=== PATIENT | male | born 1945 | race Hispanic/Latino ===

== ENCOUNTER 2021-11-13 12:56 | Emergency (ER) | payer MEDICARE ==
[2021-11-13] MEDS ORDERED: Aspirin Chewable 81 MG TAB ONE (13:27)
[2021-11-13] MEDS ORDERED: Morphine 4 MG/ML VIAL ONE ×2 (13:34→16:35)
[2021-11-13] MEDS ORDERED: methylPREDNISolone Sod Succ/PF 125 MG/2 ML VIAL ONE (13:34)
[2021-11-13] MEDS ORDERED: Ondansetron PF 4 MG/2 ML Vial ONE (13:34)
[2021-11-13 13:36] LABS: #Basophils 0.1 thou/uL (0.0-0.2); #Eosinphils 0.4 thou/uL (0.0-0.7); #Lymphocytes 2.6 thou/uL (1.20-3.40); #Monocytes 0.4 thou/uL (0.11-0.59); #Neutrophils 4.7 thou/uL (1.40-6.50); %Basophils 0.9 % (0.0-1.0); %Eosinophils 4.7 % (0.0-10.0); %Monocytes 5.4 % (0.0-10.0); %Neutrophils 57.1 % (42.0-75.0); Hemoglobin 10.1 g/dL (14.0-18.0); Mean Corpuscular HGB CONC 31.5 g/dL (32.0-36.0); Mean Corpuscular Hemoglobin 30.3 pg (27.0-31.0); Mean Corpuscular Volume 96.1 fL (78.0-98.0); Mean Platelet Volume 7.9 fL (7.4-10.4); Platelet Count 144 thou/uL (130-400); RBC Distribution Width 14.3 % (11.5-14.5); Red Blood Cell (RBC) Count 3.35 mill/uL (4.70-6.10); White Blood Cell (WBC) Count 8.2 thou/uL (4.8-10.8)
[2021-11-13 13:57] LABS: ALT (SGPT) 8 U/L (8-55); AST (SGOT) 14 U/L (5-34); Albumin 3.4 g/dL (3.4-4.8); Alkaline Phosphatase 148 U/L (40-110); Anion Gap 14 mmol/L (10-20); BUN (Urea Nitrogen) 32 mg/dL (8.4-25.7); Bilirubin, Total 0.5 mg/dL (0.2-1.2); Calc. Creatinine Clearance 0 mL/min (70-130); Calcium 8.6 mg/dL (7.8-10.44); Carbon Dioxide 21 mmol/L (23-31); Chloride 109 mmol/L (98-107); Globulin 4.1 g/dL (2.4-3.5); Glucose 200 mg/dL (83-110); Potassium 4.6 mmol/L (3.5-5.1); Protein, Total 7.5 g/dL (5.8-8.1); Sodium 139 mmol/L (136-145)
[2021-11-13 14:46] LABS: Bilirubin Negative (Negative); Blood, Urine Trace (Negative); Clarity Clear (Clear); Glucose, Urine (Dipstick) Negative (Negative); Ketone, Urine Negative (Negative); Leukocyte Negative (Negative); Nitrite Negative (Negative); Protein, Urine (Dipstick) 100 mg/dL (Neg-Trace); Specific Gravity, Urine 1.015 (1.005-1.030); Urobilinogen 0.2 mg/dL (Less than 2)
[2021-11-13 14:55] LABS: RBC/HPF 0-3 HPF (0-3); Squamous Epithelial 0-3 HPF (0-3); WBC/HPF 0-3 HPF (0-3)
[2021-11-13 15:19] LABS: SARS-CoV-2 NAA Rapid Test Not Detected (NotDetected)
[2021-11-13] MEDS ORDERED: Metoprolol Tartrate 50 MG TAB ONE (21:36)
[2021-11-13] MEDS ORDERED: Potassium Chloride 20 MEQ TAB ONE (21:36)
[2021-11-13] MEDS ORDERED: Atorvastatin Calcium 40 MG TAB PO SCH (21:45)
[2021-11-13] MEDS ORDERED: Pyridostigmine Bromide IR 60 MG TAB PO SCH (21:45)
[2021-11-13] MEDS ORDERED: Magnesium Oxide 400 MG TAB PO SCH (21:45)
[2021-11-13] MEDS ORDERED: Lantus 1000 UNITS/10 ML VIAL SC SCH (21:45)
[2021-11-13] MEDS ORDERED: Doxazosin 2 MG TAB PO SCH (21:45)
[2021-11-14] MEDS ORDERED: Insulin Regular 300 UNITS/3 ML VIAL ONE (01:26)
[2021-11-14] MEDS ORDERED: Clopidogrel Bisulfate 75 MG TAB ONE (08:46)
[2021-11-14] MEDS ORDERED: Losartan Potassium 50 MG TAB ONE (08:48)
[2021-11-14 08:53] LABS: #Lymphocytes 1.8 thou/uL (1.20-3.40); #Monocytes 0.4 thou/uL (0.11-0.59); #Neutrophils 14.8 thou/uL (1.40-6.50); %Basophils 0.1 % (0.0-1.0); %Lymphocytes 10.7 % (21.0-51.0); %Monocytes 2.3 % (0.0-10.0); %Neutrophils 86.9 % (42.0-75.0); Hemoglobin 10.7 g/dL (14.0-18.0); Mean Corpuscular Hemoglobin 30.5 pg (27.0-31.0); Mean Corpuscular Volume 98.4 fL (78.0-98.0); Mean Platelet Volume 9.6 fL (7.4-10.4); Platelet Count 147 thou/uL (130-400); RBC Distribution Width 14.7 % (11.5-14.5); Red Blood Cell (RBC) Count 3.49 mill/uL (4.70-6.10); White Blood Cell (WBC) Count 17.1 thou/uL (4.8-10.8)
[2021-11-14 09:07] LABS: Anion Gap 16 mmol/L (10-20); BUN (Urea Nitrogen) 41 mg/dL (8.4-25.7); Calc. Creatinine Clearance 0 mL/min (70-130); Calcium 8.5 mg/dL (7.8-10.44); Carbon Dioxide 16 mmol/L (23-31); Chloride 105 mmol/L (98-107); Glucose 241 mg/dL (83-110); Potassium 5.2 mmol/L (3.5-5.1); Sodium 132 mmol/L (136-145)
[2021-11-14] MEDS ORDERED: Bumetanide 1 MG TAB PO SCH ×2 (09:30→16:30)
[2021-11-14] MEDS ORDERED: Ezetimibe 10 MG TAB PO SCH (09:30)
[2021-11-14] MEDS ORDERED: Ferrous Sulfate 325 MG TAB PO SCH (09:30)
[2021-11-14] MEDS ORDERED: Meloxicam 7.5 MG TAB PO SCH (09:30)
[2021-11-14] MEDS ORDERED: Allopurinol 100 MG TAB PO SCH (09:30)
[2021-11-15] MEDS ORDERED: Ferrous Sulfate 325 MG TAB PO SCH (08:00)
[2021-11-15] MEDS ORDERED: Losartan 25 MG TAB PO SCH (09:00)
[2021-11-15] MEDS ORDERED: Allopurinol 100 MG TAB PO SCH (09:00)
[2021-11-15] MEDS ORDERED: Clopidogrel Bisulfate 75 MG TAB PO SCH (09:00)
[2021-11-15] MEDS ORDERED: Ezetimibe 10 MG TAB PO SCH (09:00)
[2021-11-15] MEDS ORDERED: Meloxicam 7.5 MG TAB PO SCH (09:00)
== END 2021-11-14 11:49 | disposition short-term general hospital (02) ==
LOC: NAV ERS 12:56
DX: J44.1 Chronic obstructive pulmonary disease with (acute) exacerbation (principal); R07.9 Chest pain, unspecified; R79.1 Abnormal coagulation profile; Z20.822 Contact with and (suspected) exposure to COVID-19; I11.0 Hypertensive heart disease with heart failure; I50.9 Heart failure, unspecified; I25.10 Atherosclerotic heart disease of native coronary artery without angina pectoris; I48.91 Unspecified atrial fibrillation; E11.9 Type 2 diabetes mellitus without complications; K21.9 Gastro-esophageal reflux disease without esophagitis; E78.5 Hyperlipidemia, unspecified; Z79.899 Other long term (current) drug therapy; Z79.4 Long term (current) use of insulin
CPT/HCPCS: 36415; 36416; 71045; 80048; 80053; 81003; 81015; 83880; 84484; 85025; 85379; 93005; 94760; 96374; 96375; 96376; J1815; J2270; J2405; J2930; J7620; U0002